=== PATIENT | male | born 1985 | race American Indian/Alaskan Native ===

== ENCOUNTER 2017-09-01 10:36 | Emergency (ER) | payer SELFPAY ==
[2017-09-01 11:13] VITALS: BP 142/91
--- NOTE | 2017-09-01 12:46 | Emergency Department Report ---
ED General Adult HPI - General Chief complaint: Dental/Oral Stated complaint: FACE SWOLLEN TOOTH PAIN Time Seen by Provider: 09/01/17 12:33 Source: patient Mode of arrival: Ambulatory Limitations: No Limitations - History of Present Illness Initial comments: This is 32-year-old male here complaining of toothache for 2 days. He reports that he took BC powder that is not helping. Pain is 10 out of 10 and does not have a dentist. Pain is achy and worse with eating. No alleviating factors. Patient here to be evaluated. MD Complaint: toothache Onset/Timin -: days(s) Location: mouth Radiation: non-radiation Severity scale (0 -10): 10 Quality: aching Consistency: constant Improves with: none Worsens with: eating Associated Symptoms: denies: confusion, chest pain, cough, diaphoresis, fever/ chills, headaches, loss of appetite, malaise, nausea/vomiting, rash, seizure, shortness of breath, syncope, weakness Treatments Prior to Arrival: Aspirin (Goody powder) - Related Data Previous Rx's Medication Instructions Recorded Last Taken Type Acetaminophen/Codeine [Tylenol 1 tab PO Q6H PRN #12 tab 09/01/17 Unknown Rx /Codeine # 3 tab] Amoxicillin [Amoxicillin TAB] 875 mg PO BID 10 Days #20 tablet 09/01/17 Unknown Rx Ibuprofen [Motrin] 600 mg PO Q8H PRN #15 tablet 09/01/17 Unknown Rx Allergies Allergy/AdvReac Type Severity Reaction Status Date / Time No Known Allergies Allergy Unverified 09/01/17 11:10 ED Review of Systems ROS: Stated complaint: FACE SWOLLEN TOOTH PAIN Other details as noted in HPI Constitutional: denies: chills, fever Eyes: denies: eye pain, eye discharge ENT: dental pain. denies: ear pain, throat pain, congestion Respiratory: denies: cough, shortness of breath, SOB with exertion, SOB at rest , stridor, wheezing Cardiovascular: denies: chest pain, palpitations Gastrointestinal: denies: nausea, vomiting Musculoskeletal: denies: back pain, arthralgia Skin: denies: rash, lesions Neurological: denies: headache, weakness ED Past Medical Hx - Past Medical History Previous Medical History?: No - Surgical History Past Surgical History?: No - Family History Family history: no significant - Social History Smoking Status: Former Smoker Substance Use Type: Alcohol - Medications Home Medications: Home Medications Medication Instructions Recorded Confirmed Last Taken Type Acetaminophen/Codeine [Tylenol 1 tab PO Q6H PRN #12 tab 09/01/17 Unknown Rx /Codeine # 3 tab] Amoxicillin [Amoxicillin TAB] 875 mg PO BID 10 Days #20 tablet 09/01/17 Unknown Rx Ibuprofen [Motrin] 600 mg PO Q8H PRN #15 tablet 09/01/17 Unknown Rx ED Physical Exam - General Limitations: No Limitations General appearance: alert, in no apparent distress - Head Head exam: Present: atraumatic, normocephalic, normal inspection - Eye Eye exam: Present: normal appearance, PERRL, EOMI Pupils: Present: normal accommodation - ENT ENT exam: Present: normal orophraynx, mucous membranes moist, TM's normal bilaterally, normal external ear exam - Expanded ENT Exam Expanded Ear exam: Present: normal external inspection Mouth exam: Present: normal external inspection Teeth exam: Present: dental caries, fractured tooth # (#30), dental tenderness # (#30), gingival enlargement Throat exam: Positive: normal inspection - Neck Neck exam: Present: normal inspection, full ROM. Absent: tenderness, lymphadenopathy - Respiratory Respiratory exam: Present: normal lung sounds bilaterally. Absent: respiratory distress, chest wall tenderness - Cardiovascular Cardiovascular Exam: Present: regular rate, normal rhythm, normal heart sounds. Absent: systolic murmur, diastolic murmur - Extremities Exam Extremities exam: Present: normal inspection, full ROM, normal capillary refill , other (no clubbing, cyanosis or edema. +2 pulses. ). Absent: tenderness, pedal edema, joint swelling, calf tenderness - Neurological Exam Neurological exam: Present: alert, oriented X3, normal gait - Psychiatric Psychiatric exam: Present: normal affect, normal mood - Skin Skin exam: Present: warm, dry, intact, normal color. Absent: rash ED Course Vital Signs 09/01/17 09/01/17 11:10 12:58 Temperature 98.6 F Pulse Rate 74 Respiratory 18 18 Rate Blood Pressure 142/91 O2 Sat by Pulse 97 Oximetry - Reevaluation(s) Reevaluation #1: 09/01/17 12:54 Patient given Motrin 800 mg by mouth which relieved this pain. ED Medical Decision Making - Medical Decision Making ED course: This is a 32-year-old male here reports that he's had toothache over the last 2 days to his lower right back tooth that is worse then. He said he took Goody powder and it did not relieve his pain. Patient here to be evaluated I saw and examined patient is found to have gingivitis, tooth #30 with fracture , multiple dental caries and tenderness around tooth #30. I discussed this patient diagnosis and treatment plan and he was given medication to help pain which she said helped and he voiced understanding. A/P 1: Gingivitis-will place an antibiotic and referred to dentist 2: Toothache-Motrin 800 mg by mouth 1 and emergency room which relieved his pain and will be sent home on Tylenol No. 3, Motrin and amoxicillin 3: Fractured tooth #30-referral to dentist 4: Dental caries-referral to dentist Patient educated on diagnosis, treatment plan, medication and dental care. He voiced understanding Patient discharged home in stable condition, vital signs stable afebrile. Patient referred to [facility] dental clinic as he does not have any insurance. I discussed with him to call today to schedule appointment for follow-up visits in 2 days. I also discussed with him that if his symptoms worsen to return to emergency room otherwise follow-up with dentist. He voiced understanding. Patient discharged home in stable condition with prescription for amoxicillin, Motrin and Tylenol 3. - Differential Diagnosis BARISTA, tonsillitis, strep pharyngitis, URI, sinusitis, dentalosis Critical care attestation.: If time is entered above; I have spent that time in minutes in the direct care of this critically ill patient, excluding procedure time. ED Disposition Clinical Impression: Tooth ache, Dental caries, Gingivitis Tooth fractures Qualifiers: Encounter type: initial encounter Fracture type: closed Qualified Code(s): S02.5XXA - Fracture of tooth (traumatic), initial encounter for closed fracture Disposition: DC-01 TO HOME OR SELFCARE Is pt being admited?: No Does the pt Need Aspirin: No Condition: Stable Instructions: Dental Caries (ED), Gingivitis (ED), Toothache (ED) Additional Instructions: Please follow up with dentist as discussed. Take Motrin for mild to moderate pain and please take this medication with food. Take Tylenol No. 3 for severe pain but please do not drive or operate heavy machinery while taking this medication. Take amoxicillin as prescribed. Please floss twice daily Prescriptions: Acetaminophen/Codeine [Tylenol /Codeine # 3 tab] 1 tab PO Q6H PRN #12 tab PRN Reason: severe pain Amoxicillin [Amoxicillin TAB] 875 mg PO BID 10 Days #20 tablet Ibuprofen [Motrin] 600 mg PO Q8H PRN #15 tablet PRN Reason: mild pain Referrals: [facility] [Outside] - 09/03/17 [facility] [Outside] - 09/03/17 Forms: Work/School Release Form(ED)
[2017-09-01] MEDS ORDERED: MOTRIN PO ONE (12:49)
== END 2017-09-01 13:15 | disposition home or self-care (01) ==
LOC: ED 10:36
DX: S02.5XXA Fracture of tooth (traumatic), initial encounter for closed fracture (principal); K02.9 Dental caries, unspecified; K05.00 Acute gingivitis, plaque induced; X58.XXXA Exposure to other specified factors, initial encounter; Y93.89 Activity, other specified; Y99.8 Other external cause status; Y92.89 Other specified places as the place of occurrence of the external cause
CPT/HCPCS: 99282